=== PATIENT | female | born 1955 ===

== ENCOUNTER 2021-02-08 17:39 | Emergency (ER) | payer SELFPAY ==
[2021-02-08 18:01] VITALS: BP 131/75
--- NOTE | 2021-02-11 19:13 | Electrocardiograph Report ---
[facility] Test Date: 2021-02-08 Test Time: 18:03:47 Pat Name: JULIET BLANK Department: Room: Gender: F Motion Picture Projectionist: FRANCIA : 1955 Requested By: TEVIN CHAN III Order Number: [id number] Reading MD: Moncho Harris Measurements Intervals [place] Rate: 79 P: 40 DC: 142 QRS: 37 QRSD: 79 T: 70 QT: 381 QTc: 437 Interpretive Statements Sinus rhythm Probable left atrial enlargement No previous ECG available for comparison Electronically Signed On 02-11-2021 19:12:47 EDT by Moncho Harris
== END 2021-02-08 21:00 | disposition left against medical advice (07) ==
LOC: ED 17:39
DX: R07.89 Other chest pain (principal); M79.642 Pain in left hand; R51.9 Headache, unspecified; Z53.21 Procedure and treatment not carried out due to patient leaving prior to being seen by health care provider
CPT/HCPCS: 93005